=== PATIENT | female | born 1930 | race Caucasian/White ===

== ENCOUNTER 2017-09-18 14:06 | Emergency (ER) | payer MEDICARE, OTHER ==
[2017-09-18] MEDS ORDERED: HYDROmorphone 1 MG/ML Syringe IVPUSH ONE (14:41)
[2017-09-18] MEDS ORDERED: Sodium Chloride 0.9% 10 ML Syringe FLUSH PRN (14:42)
[2017-09-18] MEDS ORDERED: Morphine 2 MG/ML Syringe IVPUSH ONE (15:31)
[2017-09-18 15:36] LABS: ANION GAP 16.9
--- NOTE | 2017-09-18 16:21 | CR ---
Clinical history: 86-year-old female injured fall (left hip pain). Interpretation: AP pelvis/hips and 3 additional views of the left hip confirm acute, mildly impacted but near anatomically aligned subcapital fracture proximal left femur. Evidence of extensive lower lumbar laminectomy. Symmetric spacing normal-appearing SI and hip joints. No sign of other pelvic or contralateral right hip fracture/dislocation. CONCLUSION: Acute left femoral neck fracture.
--- NOTE | 2017-09-18 16:25 | EDM.PDOC ---
Scribed by Melonie Dietrich 09/18/17 1601 for Sharlene Whittaker NP ED HPI GENERAL MEDICAL PROBLEM - General Chief Complaint: Trauma Stated Complaint: [id number] IN BY AMBULANCE Time Seen by Provider: 09/18/17 14:30 Source of Information: Reports: Patient, EMS, EMS Notes Reviewed, Family, RN, RN Notes Reviewed History Limitations: Reports: No Limitations - History of Present Illness INITIAL COMMENTS - FREE TEXT/NARRATIVE: Pt presents to the ER per [facility]. She states she was at [employer] when she slipped and fell. She states she has pain in the left hip, upper lateral thigh area. She denies hitting her head or losing consciousness. She states she takes Xarelto. She states she had a fracture of the left ankle about a year ago. Onset: Today, Sudden Location: Reports: Lower Extremity, Left Quality: Reports: Sharp, Throbbing Severity: Severe Improves with: Reports: None Worsens with: Reports: Movement Associated Symptoms: Reports: No Other Symptoms Left Hip Pain Score (Numeric/FACES): 10 - Related Data Allergies Allergy/AdvReac Type Severity Reaction Status Date / Time No Known Allergies Allergy Verified 09/18/17 15:25 Review of Systems - Review of Systems Review Of Systems: ROS reveals no pertinent complaints other than HPI. ED EXAM, GENERAL - Physical Exam Exam: See Below Exam Limited By: No Limitations General Appearance: Alert, WD/WN, Moderate Distress Eye Exam: Bilateral Eye: EOMI, Normal Inspection Ears: Normal External Exam, Hearing Grossly Normal Nose: Normal Inspection Throat/Mouth: Normal Inspection, Normal Voice, No Airway Compromise Head: Atraumatic, Normocephalic Neck: Normal Inspection, Supple, Non-Tender, Full Range of Motion Respiratory/Chest: No Respiratory Distress, Lungs Clear, Chest Non-Tender, Decreased Breath Sounds Cardiovascular: Normal Peripheral Pulses, No Edema, No Gallop, No JVD, No Murmur , No Rub, Irregularly Irregular Peripheral Pulses: 2+: Radial (L), Radial (R), Dorsalis Pedis (L), Dorsalis Pedis (R) GI/Abdominal: Normal Bowel Sounds, Soft, Non-Tender, No Organomegaly, No Distention, No Abnormal Bruit, No Mass (Female) Exam: Deferred Rectal (Female) Exam: Deferred Back Exam: Normal Inspection, Full Range of Motion Extremities: Normal Inspection, Normal Range of Motion, Non-Tender, No Pedal Edema, Normal Capillary Refill Neurological: Alert, Oriented, CN II-XII Intact, Normal Cognition, Normal Reflexes, No Motor/Sensory Deficits Psychiatric: Normal Affect, Normal Mood, Tearful Skin Exam: Warm, Dry, Intact, Ecchymosis (left lateral upper thigh) Lymphatic: No Adenopathy Course - Vital Signs Last Recorded V/S: Last Vital Signs Temp 96.7 F 09/18/17 14:31 Pulse 58 L 09/18/17 14:31 Resp 16 09/18/17 14:31 BP 144/116 H 09/18/17 14:31 Pulse Ox 96 09/18/17 14:31 - Orders/Labs/Meds Orders: Active Orders 24 hr Category Date Time Status Caldera Catheter Insertion [Insert Urinary Catheter] [OM. Care 09/18/17 15:00 Ordered PC] Q24H Peripheral IV Care [RC] . DIRECTED Care 09/18/17 14:42 Active Urinary Catheter Assessment [RC] ASDIRECTED Care 09/18/17 14:56 Active Sodium Chloride 0.9% [Saline Flush] Med 09/18/17 14:42 Active 10 ml FLUSH ASDIRECTED PRN Peripheral IV Insertion Adult [OM.PC] Stat Oth 09/18/17 14:42 Ordered Medication Orders Sodium Chloride (Saline Flush) 10 ml FLUSH ASDIRECTED PRN PRN Reason: Keep Vein Open Last Admin: 09/18/17 15:09 Dose: 10 ml Labs: Laboratory Tests 09/18/17 09/18/17 09/18/17 Range/Units 15:08 15:09 15:09 WBC 5.8 (5.0-10.0) 10^3/uL RBC 3.37 L (4.2-5.4) 10^6/uL Hgb 10.2 L (12.0-16.0) g/dL Hct 31.2 L (37.0-47.0) % MCV 92.6 (80-100) fL MCH 30.3 (27.0-34.0) pg MCHC 32.7 L (33.0-35.0) g/dL Plt Count 192 (150-450) 10^3/uL Neut % (Auto) 74.9 (42.2-75.2) % Lymph % (Auto) 15.1 L (20.5-50.1) % Payne % (Auto) 7.9 (2-8) % Eos % (Auto) 1.4 (1.0-3.0) % Baso % (Auto) 0.7 (0.0-1.0) % Sodium 141 (135-145) mmol/L Potassium 3.9 (3.6-5.0) mmol/L Chloride 101 (101-111) mmol/L Carbon Dioxide 27.0 (21.0-31.0) mmol/L Anion Gap 16.9 BUN 33 H (7-18) mg/dL Creatinine 0.9 (0.6-1.3) mg/dL Est Cr Clr Drug Dosing 39.63 mL/min Estimated GFR (MDRD) 59 BUN/Creatinine Ratio 36.66 Glucose 106 H (74-105) mg/dL Calcium 9.1 (8.4-10.2) mg/dl Total Bilirubin 0.7 (0.2-1.0) mg/dL AST 23 (10-42) IU/L ALT 12 (10-60) IU/L Alkaline Phosphatase 79 (42-121) IU/L Total Protein 6.2 L (6.7-8.2) g/dl Albumin 3.6 (3.2-5.5) g/dl Globulin 2.6 Albumin/Globulin Ratio 1.38 Urine Color Yellow (YELLOW) Urine Appearance Clear (CLEAR) Urine pH 6.0 (5.0-9.0) Ur Specific [place] 1.020 (1.005-1.030) Urine Protein Negative (NEGATIVE) Urine Glucose (UA) Negative (NEGATIVE) Urine Ketones Negative (NEGATIVE) Urine Occult Blood Negative (NEGATIVE) Urine Nitrite Positive H (NEGATIVE) Urine Bilirubin Negative (NEGATIVE) Urine Urobilinogen 0.2 (0.2-1.0) mg/dL Ur Leukocyte Esterase Trace H (NEGATIVE) Urine RBC 0-5 /HPF Urine WBC 10-20 H (0-5/HPF) /HPF Ur Epithelial Cells Rare /HPF Urine Bacteria Many H (0-FEW/HPF) /HPF Meds: Medications Generic Name Dose Route Start Last Admin Trade Name Freq PRN Reason Stop Dose Admin Sodium Chloride 10 ml 09/18/17 14:42 09/18/17 15:09 Saline Flush FLUSH 10 ml ASDIRECTED PRN Administration Keep Vein Open Discontinued Medications Generic Name Dose Route Start Last Admin Trade Name Edenilsonq PRN Reason Stop Dose Admin Hydromorphone HCl 0.5 mg 09/18/17 14:41 09/18/17 15:08 Dilaudid IVPUSH 09/18/17 14:42 0.5 mg ONETIME ONE Administration Morphine Sulfate 2 mg 09/18/17 15:31 09/18/17 15:39 Morphine IVPUSH 09/18/17 15:32 2 mg ONETIME ONE Administration - Radiology Interpretation Free Text/Narrative:: Left hip/pelvis: Femoral neck fracture See rad report Departure - Departure Time of Disposition: 16:25 Disposition: DC/Tfer to Acute Hospital 02 Condition: Fair Clinical Impression: Fracture of femoral neck Qualifiers: Encounter type: initial encounter Fracture type: closed Laterality: left Qualified Code(s): S72.002A - Fracture of unspecified part of neck of left femur , initial encounter for closed fracture - Discharge Information Referrals: PCP,Not In Area [Primary Care Provider] - Forms: ED Department Discharge, Interfacility Transfer EMTALA - My Orders Last 24 Hours: My Active Orders 09/18/17 14:42 Peripheral IV Care [RC] . DIRECTED Sodium Chloride 0.9% [Saline Flush] 10 ml FLUSH ASDIRECTED PRN Peripheral IV Insertion Adult [OM.PC] Stat 09/18/17 14:56 Urinary Catheter Assessment [RC] ASDIRECTED 09/18/17 15:00 Caldera Catheter Insertion [Insert Urinary Catheter] [OM.PC] Q24H - Assessment/Plan Last 24 Hours: My Active Orders 09/18/17 14:42 Peripheral IV Care [RC] . DIRECTED Sodium Chloride 0.9% [Saline Flush] 10 ml FLUSH ASDIRECTED PRN Peripheral IV Insertion Adult [OM.PC] Stat 09/18/17 14:56 Urinary Catheter Assessment [RC] ASDIRECTED 09/18/17 15:00 Caldera Catheter Insertion [Insert Urinary Catheter] [OM.PC] Q24H I have read and agree with the documentation that has been completed regarding this visit. By signing this record, I attest that the documentation was completed in my physical presence and is an accurate record of the encounter.
== END 2017-09-18 16:42 ==
LOC: DL.ED 14:06
DX: S72.002A Fracture of unspecified part of neck of left femur, initial encounter for closed fracture (principal); W01.198A Fall on same level from slipping, tripping and stumbling with subsequent striking against other object, initial encounter
CPT/HCPCS: 36415; 51702; 73502; 80053; 81001; 85025; 96374; 96375; 99285; J1170; J2270; J7050